=== PATIENT | male | born 1950 | race Caucasian/White ===

== ENCOUNTER → 2017-11-01 | Outpatient (CLI) | payer MEDICARE ==
--- NOTE | 2017-11-01 10:46 | DIAGNOSTIC IMAGING REPORT ---
LEFT HIP 2 VIEWS CLINICAL HISTORY: Left hip pain. FINDINGS: AP and frog-leg views of the left hip are obtained. No prior studies are available for comparison at the time of dictation. The skeletal structures appear osteopenic. No fracture is seen involving the left hip or the visualized left hemipelvis. Minimal arthritic change and joint space narrowing is seen in the left hip. The sacroiliac joints are normal as visualized. Mild sclerotic change is noted at the symphysis pubis. Pelvic phlebolith are observed. There is atherosclerotic calcification of the left femoral artery. The overlying soft tissues are within normal limits. IMPRESSION: Minimal degenerative change as above with no acute osseous abnormality identified in the left hip. Electronically signed by: Henrik Mejia M.D. 11/01/2017 10:45 AM Dictated Date/Time: 11/01/2017 10:44 AM
== END | disposition home or self-care (01) ==
LOC: C.RAD1850 10:35
PROVIDERS: ATTEND Nurse Practitioner Family
DX: M16.12 Unilateral primary osteoarthritis, left hip (principal)

== ENCOUNTER → 2017-11-09 | Outpatient (CLI) | payer MEDICARE | END | disposition home or self-care (01) | LOC: C.RDSM 09:55 | PROVIDERS: ATTEND Orthopaedic Surgery | DX: M25.552 Pain in left hip (principal) ==